=== PATIENT | female | born 2000 | race Caucasian/White ===

== ENCOUNTER 2025-05-22 16:03 | Inpatient (IN) ==
[2025-05-22] MEDS ORDERED: CALCIUM CARBONATE 500 MG CHEWABLE TAB PO PRN (17:55)
[2025-05-22] MEDS ORDERED: LIDOCAINE 1% LOCAL 20 ML VIAL INFIL PRN (17:55)
--- NOTE | 2025-05-22 18:02 | History & Physical Report ---
Date of Service May 22, 2025 Assessment & Plan (1) Obesity during in third trimester: (2) Decreased movements affecting management of mother, antepartum: Plan: 25-year-old at 39 weeks of gestation presenting today with decreased movements all day, reassuring NST and BPP, patient still desires induction of labor at term, Vital signs stable afebrile, GBS negative, Plan to admit, monitor, labs, Cervidil for cervical ripening, patient understands induction process may take a day or 2, All questions were answered. (3) with 39 completed weeks gestation: (4) PCOS (polycystic ovarian syndrome): (5) Ankylosing spondylitis of multiple sites in spine: History of Present Illness Primary Care Provider: NO PCP Patient is a 25-year-old G1, P0 at 39 weeks of gestation who was in the office this morning for routine OB visit and NST. It was not reactive, had only 1 acceleration, moderate variability, no decelerations. She was sent to labor and delivery at [facility]. she had reactive NST and she was sent to ultrasound for BPP it was 8 out of 8. She complained of decreased movements in the office due to the reassuring findings she was sent home. She monitored movements at home and baby has not moved, maybe 2 times in more than 2 hours. She states this is not typical for her baby. He normally moves many times but has not been active today all day. Her NST is reactive here with moderate variability, good accelerations, normal baseline, no decelerations. I did a bedside ultrasound and saw gross body movements, extremity movements, normal tone, LOU is 15.7 cm. She also had membranes stripped this morning and she has been feeling irregular contractions and bloody discharge. She has some induction scheduled for May 26 asking whether she can be induced tonight. We discussed the findings and situation labor and delivery and offered induction tonight and she is appreciative. Allergies Allergy/AdvReac Type Severity Reaction Status Date / Time No Known Allergies Allergy Verified 10/16/24 23:10 Home Medications Medication Instructions Recorded Confirmed Type ondansetron 4 mg disintegrating 4 mg PO Q6H PRN nausea and 10/17/24 02/16/25 Rx tablet vomiting #15 tabs Flintstones Gummies 2 PO DAILY 02/16/25 History folic acid 400 mcg tablet 0.4 mg PO DAILY 02/16/25 02/16/25 History iron 18 mg tablet 18 mg PO DAILY 02/16/25 02/16/25 History Patient History Medical History PVC (premature ventricular contraction) Anxiety PCOS (polycystic ovarian syndrome) Ankylosing spondylitis of multiple sites in spine Surgical History History of removal of ovarian cyst H/O foot surgery History of tonsillectomy and adenoidectomy Family History Other Ankylosing spondylitis Osteogenesis imperfecta Spina bifida Social History Smoking Status: Never smoker Second Hand Exposure: No; Do You Dip or Chew Tobacco: No; Tobacco Cessation Education Requested by Patient: No Hx Alcohol Use: No Hx Substance Use: No Preferred Language: Slovak Communication Ability: Effective Visual Impairment: No Limitations Hearing Ability: Normal Concrete Pointer Required: No Beliefs That Will Affect Care: None marital status: Current Living Situation: Spouse current occupational status: employed 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 Feels Safe at Home: Yes Safety Concerns: Feels Safe At This Time Assistive Devices: None [employer] History No history of STDs, no history of chlamydia, gonorrhea, herpes Review of Systems as per Subjective / HPI Physical Exam Constitutional: WD/WN, vitals as above well developed, well nourished and + obese Gastrointestinal (Abdomen): normal bowel sounds, soft, nontender, no hepatosplenomegaly Genitourinary: OB Exam Abdomen: + vertex ( confirmed with ultrasound) Manual OB Exam: + cervical dilation 1 cm, + cervical effacement 30% and + station high Results & Data Vital Signs (Past 12 Hours) Vital Signs Pulse BP Pulse Ox 05/22/25 17:25 90 98 05/22/25 17:21 99 H 120/76 05/22/25 17:20 98 H 95 05/22/25 17:15 85 97 05/22/25 17:10 104 H 97 05/22/25 17:05 93 H 98 05/22/25 17:00 89 98 05/22/25 16:55 91 H 99 05/22/25 16:50 86 98 05/22/25 16:45 96 H 97 05/22/25 16:40 94 H 99 05/22/25 16:35 105 H 98 05/22/25 16:30 93 H 99 05/22/25 16:25 104 H 98 05/22/25 16:20 101 H 99 05/22/25 16:15 112 H 98 05/22/25 16:12 102 H 134/70 05/22/25 16:10 105 H 100
[2025-05-22 19:42] LABS: Hematocrit (blood only) 36.4 % (37.0-47.0); Hemoglobin 12.7 g/dl (12.0-16.0); Mean Corpuscular Hemoglobin 28.7 pg (25.0-34.0); Mean Corpuscular Volume 82.4 fL (80.0-100.0); Platelet Count 223 K/uL (130-400); RDW Standard Deviation 40.9 fL (36.4-46.3); Red Blood Count 4.42 M/uL (4.20-5.40); White Blood Count 12.80 K/ul (4.8-10.8)
[2025-05-22 20:01] LABS: Alanine Aminotransferase 5.0 U/L (7-52); Albumin Globulin Ratio 1.0 (0.9-2); Alkaline Phosphatase 113.0 U/L (34-104); Anion Gap 9.0 (3-11); Bilirubin,Total 0.6 mg/dl (0.2-1.0); Blood Urea Nitrogen 4.0 mg/dl (6-23); Calcium 9.0 mg/dl (8.6-10.3); Carbon Dioxide 23.0 mmol/L (21-32); Chloride 105.0 mmol/L (98-107); Creatinine Clr Calc Pharmacy 274.9 ml/min; Globulin 3.5 gm/dl (2.5-4.0); Glucose 82.0 mg/dl (70-99(Fasting)); Potassium 3.6 mmol/L (3.5-5.1); Sodium 137.0 mmol/L (136-145); Total Protein 7.0 gm/dl (6.0-8.3)
[2025-05-22] MEDS: DINOPROSTONE 10 MG INSERT PV ONE (21:15)
--- NOTE | 2025-05-22 21:23 | Obstetrical Progress Note ---
Date of Service May 22, 2025 Assessment & Plan Admission and Anticipated Discharge Date Admission Date: May 22, 2025 Subjective patient ate dinner, took shower and ready for Cervidil, Vital signs stable afebrile, heart rate reassuring, Cervidil is placed in posterior fornix, Discussed what to expect, Continue to monitor closely, All questions were answered. Results & Data Vital Signs (Past 12 Hours) Vital Signs Temp Pulse Resp BP Pulse Ox 05/22/25 21:20 110 H 97 05/22/25 21:15 108 H 98 05/22/25 19:20 36.8 C 20 05/22/25 19:20 95 H 124/73 05/22/25 18:24 86 136/61 05/22/25 17:25 90 98 05/22/25 17:21 99 H 120/76 05/22/25 17:20 98 H 95 05/22/25 17:15 85 97 05/22/25 17:10 104 H 97 05/22/25 17:05 93 H 98 05/22/25 17:00 89 98 05/22/25 16:55 91 H 99 05/22/25 16:50 86 98 05/22/25 16:45 96 H 97 05/22/25 16:40 94 H 99 05/22/25 16:35 105 H 98 05/22/25 16:30 93 H 99 05/22/25 16:25 104 H 98 05/22/25 16:20 101 H 99 05/22/25 16:15 112 H 98 05/22/25 16:12 102 H 134/70 05/22/25 16:10 105 H 100
[2025-05-22] MEDS: ACETAMINOPHEN 500 MG TAB PO PRN (21:25)
[2025-05-23] MEDS: BUTORPHANOL TARTRATE 1 MG/ML VIAL IV PRN (00:24)
--- NOTE | 2025-05-23 09:23 | Labor Progress Brief Note ---
Date of Service May 23, 2025 Subjective Reason For Note: Routine Evaluation Assessment & Plan Admission and Anticipated Discharge Date Admission Date: May 22, 2025 Physical Exam Constitutional: WD/WN, vitals as above Genitourinary: no vaginal lesions, no adnexal mass Manual OB Exam: + cervical dilation 1 cm, + cervical effacement 50% and + station high OB Exam Monitor Tracing: + external FHT monitor used, + external uterine monitor used, + category I and + normal FHT variability Cervidil pulled out from vagina. Will continue ripening as cervix is still posterior and firm. vertex is high. Results & Data Vital Signs (Past 12 Hours) Vital Signs Temp Pulse Resp BP Pulse Ox 05/23/25 09:05 36.8 C 93 H 18 129/71 05/23/25 04:04 91 H 97 05/23/25 03:59 87 97 05/23/25 03:54 79 97 05/23/25 03:49 80 96 05/23/25 03:44 74 97 05/23/25 03:39 78 97 05/23/25 03:34 83 97 05/23/25 03:29 89 97 05/23/25 03:24 85 97 05/23/25 03:19 99 H 100 05/23/25 03:16 99 H 119/62 05/23/25 03:15 18 05/23/25 03:15 36.7 C 18 05/23/25 03:14 99 H 98 05/23/25 01:28 82 97 05/23/25 01:23 79 96 05/23/25 01:18 93 H 96 05/23/25 01:13 93 H 97 05/22/25 23:15 36.8 C 83 18 141/80 H 05/22/25 23:14 82 94 05/22/25 23:10 84 97 05/22/25 23:05 74 97 05/22/25 23:00 89 96 05/22/25 22:55 79 96 05/22/25 22:50 88 96 05/22/25 22:45 89 95 05/22/25 22:40 83 96 05/22/25 22:35 94 H 96 05/22/25 22:30 85 97 05/22/25 22:25 86 98 05/22/25 22:20 90 99 05/22/25 22:17 85 94 05/22/25 22:15 90 98 05/22/25 22:10 97 H 96 05/22/25 22:05 97 H 97 05/22/25 22:00 87 97 05/22/25 21:55 82 98 05/22/25 21:50 91 H 98 05/22/25 21:47 99 H 93 05/22/25 21:45 93 H 95 05/22/25 21:40 88 98 05/22/25 21:35 81 98 05/22/25 21:30 89 98 05/22/25 21:25 98 H 98
[2025-05-23] MEDS: miSOPROStoL 50 MCG TAB PO SCH (11:30)
[2025-05-23] MEDS: LACTATED RINGER'S 1,000 ML IV PRN (15:37)
--- NOTE | 2025-05-23 15:41 | Labor Progress Brief Note ---
Date of Service May 23, 2025 Assessment & Plan Admission and Anticipated Discharge Date Admission Date: May 22, 2025 Physical Exam Genitourinary: Manual OB Exam: + cervical dilation 1 cm and 2 cm, + cervical effacement 50% and + station (Villa placed into cervix with 30 ml saline in balloon. Will start Oxytocin) -2 OB Exam Monitor Tracing: + external FHT monitor used, + external uterine monitor used, + category I and + normal FHT variability Results & Data Vital Signs (Past 12 Hours) Vital Signs Temp Pulse Resp BP Pulse Ox 05/23/25 15:24 85 138/76 05/23/25 13:00 36.8 C 05/23/25 12:59 88 97 05/23/25 12:58 88 128/68 05/23/25 11:19 91 H 133/75 05/23/25 09:05 36.8 C 93 H 18 129/71 05/23/25 04:04 91 H 97 05/23/25 03:59 87 97 05/23/25 03:54 79 97 05/23/25 03:49 80 96 05/23/25 03:44 74 97
[2025-05-23] MEDS ORDERED: NALBUPHINE HCL INJ 10 MG/ML AMP IV PRN (16:41)
[2025-05-23] MEDS ORDERED: ONDANSETRON INJ 2 MG/ML 2 ML VIAL IV PRN (16:41)
[2025-05-23] MEDS ORDERED: ROPIVACAINE 0.5% PF 5 MG/ML 20 ML VIAL EPI PRN (16:41)
[2025-05-23] MEDS ORDERED: diphenhydrAMINE 50 MG/ML VIAL IV PRN (16:41)
[2025-05-23] MEDS ORDERED: LIDOCAINE 2% MPF LOCAL 5 ML VIAL EPI PRN (16:41)
[2025-05-23] MEDS ORDERED: NALOXONE HCL 1 MG in SODIUM CHLORIDE 0.9% 1,000 ML IV PRN (16:41)
[2025-05-23] MEDS ORDERED: NALOXONE HCL 0.4 MG/1 ML VIAL/CARP IV PRN (16:41)
[2025-05-23] MEDS ORDERED: PROMETHAZINE 6.25 MG/50.25 ML BAG IV PRN (16:41)
[2025-05-23] MEDS ORDERED: BUPIVACAINE 0.25% PF 30 ML VIAL EPI PRN (16:41)
[2025-05-23] MEDS ORDERED: SODIUM CHLORIDE 0.9% PF INJ 10 ML VIAL EPI PRN (16:41)
[2025-05-23] MEDS: fentANYL 2 MCG/ML BUPIVacaine 0.125%-NSS 100ML BAG ONE (16:42)
--- NOTE | 2025-05-23 16:42 | Anesthesiology Consultation ---
Date of Service May 23, 2025 Assessment & Plan Chart Review Chart Review: Patient NOT seen in Pre Admission Testing and Acceptable Risk for Labor Epidural Consults Requested none ASA ASA2 Proposed Anesthesia Anesthesia Type: Labor Epidural Risk / Benefits Reviewed With: PT / POA / Parent / Guardian, Accepts Plan and Informed Consent Obtained History Height/Weight Height: 5 ft 7 in Weight: 121.563 kg Allergies Allergy/AdvReac Type Severity Reaction Status Date / Time No Known Allergies Allergy Verified 05/22/25 18:30 Medications Home Medications Medication Instructions Recorded Confirmed Last Taken ondansetron 4 mg disintegrating 4 mg PO Q6H PRN nausea and 10/17/24 02/16/25 04/21/25 tablet vomiting #15 tabs prenat.vits,fabby,[id number] 1 tab PO DAILY 05/22/25 05/22/25 05/22/25 09:00 Active Medications Generic Name Dose Route Start Last Admin Trade Name Freq PRN Reason Stop Dose Admin Acetaminophen 1,000 mg 05/22/25 17:55 05/22/25 21:25 Acetaminophen 500 Mg Tab PO 06/21/25 17:54 1,000 mg Q8H PRN Administration Pain Butorphanol Tartrate 1 mg 05/22/25 21:23 05/23/25 12:32 Butorphanol Tartrate 1 Mg/Ml Vial IV 06/21/25 21:22 1 mg Q3H PRN Administration Pain Lactated Ringer's 1,000 mls @ 125 mls/hr 05/22/25 17:55 05/23/25 16:39 Lr IV 05/24/25 17:54 125 mls/hr .Q8H PRN Administration L&D Protocol Protocol Misoprostol 50 mcg 05/23/25 09:21 05/23/25 11:30 Misoprostol 50 Mcg Tab PO 06/22/25 09:20 50 mcg Q4 CATE Administration Past Medical History Medical History PVC (premature ventricular contraction) Anxiety PCOS (polycystic ovarian syndrome) Ankylosing spondylitis of multiple sites in spine Exercise / Class Metabolic Activity II 4-5 Yardwork/Stairs/Walk up hill Past Family History Family History Other Ankylosing spondylitis Osteogenesis imperfecta Spina bifida Past Surgical History Surgical History History of removal of ovarian cyst H/O foot surgery History of tonsillectomy and adenoidectomy Past Anesthesia History No Hx of Anesthesia Complications and No Family Hx of Anesthesia Complications History of PONV No Hx of PONV and No Hx of Motion Sickness Social History Smoking Status: Never smoker Do You Dip or Chew Tobacco: No Hx Alcohol Use: No Hx Substance Use: No Physical Exam Vital Signs Last Vital Signs Temp 36.8 C 05/23/25 13:00 Pulse 90 05/23/25 16:39 Resp 18 05/23/25 09:05 BP 110/62 05/23/25 16:39 Pulse Ox 100 05/23/25 16:37 ENMT Mouth: no dentition abnormality Thyromental Distance: > or= 3.5 Finger Breadths Mallampati Class: II Neck normal visual inspection Respiratory normal respiratory effort Auscultation: lungs clear to auscultation bilaterally Cardiovascular Rate/Rhythm: regular rate and regular rhythm Psychiatric Orientation: alert Testing Laboratory Results 05/22/25 19:25 05/22/25 19:25 Blood Type AB Positive 05/22/25 19:25 Antibody Screen NEGATIVE 05/22/25 19:25
[2025-05-23] MEDS: OXYTOCIN 30 UNITS/NSS 30 UNITS/500 ML BAG IV PRN ×2 (17:30→22:38)
[2025-05-23] MEDS: SODIUM CHLORIDE 0.9% PF INJ 10 ML VIAL ONE (18:00)
[2025-05-23] MEDS: BUPIVACAINE 0.25% PF 30 ML VIAL ONE (18:00)
[2025-05-23] MEDS: LIDOCAINE 2%/EPINEPHRINE 1:200,000 20 ML PF ONE (18:00)
[2025-05-23] MEDS ORDERED: NURSING L&D Epidural Breakthrough Pain Update ONE (20:56)
--- NOTE | 2025-05-23 21:44 | Labor Progress Brief Note ---
Date of Service May 23, 2025 Assessment & Plan Admission and Anticipated Discharge Date Admission Date: May 22, 2025 Physical Exam Genitourinary: Manual OB Exam: + cervical dilation 5 cm, + cervical effacement 100%, + station -1 and + amniotic fluid (AROM with Amni-hook clear fluid) clear OB Exam Monitor Tracing: + external FHT monitor used, + external uterine monitor used, + category I and + normal FHT variability Results & Data Vital Signs (Past 12 Hours) Vital Signs Temp Pulse Resp BP Pulse Ox 05/23/25 21:42 106 H 100 05/23/25 21:37 109 H 100 05/23/25 21:33 121 H 91 05/23/25 21:32 106 H 99 05/23/25 21:27 104 H 99 05/23/25 21:22 100 H 100 05/23/25 21:17 98 H 98 05/23/25 21:12 94 H 100 05/23/25 21:07 87 100 05/23/25 21:02 104 H 100 05/23/25 20:57 106 H 100 05/23/25 20:53 106 H 90 05/23/25 20:52 104 H 100 05/23/25 20:51 99 H 134/66 05/23/25 20:47 94 H 100 05/23/25 20:42 92 H 100 05/23/25 20:41 102 H 92 05/23/25 20:37 99 H 100 05/23/25 20:35 93 H 106/59 L 05/23/25 20:32 100 H 100 05/23/25 20:27 98 H 100 05/23/25 20:22 102 H 100 05/23/25 20:21 116 H 121/68 05/23/25 20:17 104 H 99 05/23/25 20:12 104 H 100 05/23/25 20:07 134 H 100 05/23/25 20:06 98 H 112/58 L 05/23/25 20:02 100 05/23/25 20:02 102 H 05/23/25 20:02 104 H 93 05/23/25 19:57 104 H 98 05/23/25 19:52 99 H 100 05/23/25 19:49 103 H 94 05/23/25 19:47 102 H 100 05/23/25 19:42 87 100 05/23/25 19:37 83 99 05/23/25 19:36 76 123/58 L 05/23/25 19:32 82 100 05/23/25 19:27 77 100 05/23/25 19:22 84 100 05/23/25 19:20 85 133/70 05/23/25 19:17 86 100 05/23/25 19:12 80 99 05/23/25 19:07 76 100 05/23/25 19:05 73 128/62 05/23/25 19:04 16 05/23/25 19:04 36.9 C 16 05/23/25 19:02 91 05/23/25 19:02 81 05/23/25 19:02 82 91 05/23/25 18:57 96 H 99 05/23/25 18:52 76 99 05/23/25 18:50 77 117/59 L 05/23/25 18:47 83 100 05/23/25 18:45 36.8 C 05/23/25 18:42 104 H 99 05/23/25 18:37 99 05/23/25 18:37 97 H 05/23/25 18:37 109 H 112/58 L 05/23/25 18:32 100 H 99 05/23/25 18:27 85 98 05/23/25 18:22 87 98 05/23/25 18:20 90 99/55 L 05/23/25 18:17 88 98 05/23/25 18:12 88 99 05/23/25 18:07 96 H 99 05/23/25 18:06 89 109/56 L 05/23/25 18:02 84 99 05/23/25 17:57 101 H 100 05/23/25 17:52 86 99 05/23/25 17:50 97 H 97/53 L 05/23/25 17:48 91 H 94 05/23/25 17:47 86 95 05/23/25 17:42 76 100 05/23/25 17:37 84 100 05/23/25 17:35 84 91 05/23/25 17:32 73 99 05/23/25 17:31 95 H 105/56 L 05/23/25 17:27 80 116/58 L 99 05/23/25 17:23 82 114/60 05/23/25 17:22 77 99 05/23/25 17:17 74 100 05/23/25 17:16 75 110/57 L 05/23/25 17:14 97 H 92 05/23/25 17:12 100 05/23/25 17:12 89 05/23/25 17:12 86 114/56 L 05/23/25 17:07 81 110/55 L 100 05/23/25 17:03 85 110/57 L 05/23/25 17:02 81 97 05/23/25 16:57 84 100 05/23/25 16:55 92 H 107/53 L 05/23/25 16:53 85 95/45 L 05/23/25 16:52 77 93/53 L 99 05/23/25 16:49 82 91 05/23/25 16:48 82 115/54 L 05/23/25 16:47 80 100 05/23/25 16:43 86 98/52 L 05/23/25 16:42 100 05/23/25 16:42 83 05/23/25 16:42 91 H 104/50 L 05/23/25 16:39 90 110/62 05/23/25 16:38 94 H 118/57 L 05/23/25 16:37 97 H 100 05/23/25 16:36 89 200/145 H 05/23/25 16:35 90 94 05/23/25 16:32 100 05/23/25 16:32 87 05/23/25 16:32 101 H 130/58 L 05/23/25 16:30 91 H 135/64 05/23/25 16:29 97 H 93 05/23/25 16:27 96 H 81 L 05/23/25 16:23 96 H 92 05/23/25 16:22 98 H 136/82 100 05/23/25 15:24 85 138/76 05/23/25 13:00 36.8 C 05/23/25 12:59 88 97 05/23/25 12:58 88 128/68 05/23/25 11:19 91 H 133/75
[2025-05-23] MEDS: fentANYL 2 MCG/ML BUPIVacaine 0.125%-NSS 100ML BAG EPI PRN (21:55)
--- NOTE | 2025-05-23 22:32 | Anesthesia Procedure Note ---
Date of Service May 23, 2025 Anesthesia Epidural Re-Dose Vital Signs Temp Pulse Resp BP Pulse Ox 36.9 C 98 H 16 134/66 95 05/23/25 19:04 05/23/25 22:27 05/23/25 19:04 05/23/25 20:51 05/23/25 22:27 Notes Pain Intensity: 2 Dilatation (cm): 5.0 Effacement (%): 100 After Epidural Re-Dose Mental Status: alert / awake / arousable Pain: improving with treatment Airway Patency, RR, SpO2: stable & adequate BP & HR: stable & adequate Additional Notes: Epidural level checked with ice with very good level bilaterally. She started having increasing pain after breaking water and rapid dilation from 5-10cm. Discussed expectation for rapidly increasing pressure sensation given the course of labor. Dosed with 7cc of 0.25% bupivicane. Mildly improved pain control, but patient now ready to push.
[2025-05-23] MEDS ORDERED: OXYTOCIN 30 UNITS/NSS 30 UNITS/500 ML BAG IV PRN (22:47)
[2025-05-23] MEDS ORDERED: HYDROCORTISONE ACETATE 25 MG SUPP PR PRN (22:47)
--- NOTE | 2025-05-23 22:49 | Delivery Summary ---
Vaginal Delivery Summary Date of Service May 23, 2025 Vaginal Delivery Summary live male SIMI over intact perineum with delayed cord clamping. Apgars 8/9 weight pending. Cord blood obtained followed by spontaneous delivery of intact placenta. No tears. QBL 60 ml. Final sponge and needle count are correct. Mom and baby stable.
[2025-05-24] MEDS: ACETAMINOPHEN 325 MG TAB PO PRN (03:01)
[2025-05-24] MEDS: BENZOCAINE 20% SPRY 85 APPLN/85 GM CAN EXT PRN (03:37)
[2025-05-24] MEDS: IBUPROFEN 600 MG TAB PO PRN (06:32)
[2025-05-24 06:39] LABS: Hematocrit (blood only) 33.3 % (37.0-47.0); Hemoglobin 11.1 g/dl (12.0-16.0); Mean Corpuscular Hemoglobin 27.5 pg (25.0-34.0); Mean Corpuscular Volume 82.4 fL (80.0-100.0); Platelet Count 193 K/uL (130-400); RDW Standard Deviation 41.1 fL (36.4-46.3); Red Blood Count 4.04 M/uL (4.20-5.40); White Blood Count 16.72 K/ul (4.8-10.8)
[2025-05-24] MEDS: DOCUSATE SODIUM 100 MG CAP PO SCH (07:55)
[2025-05-24] MEDS: PRENATAL VITAMIN 1 TAB PO SCH (07:55)
[2025-05-24] MEDS: FERROUS SULFATE 325 MG TAB PO SCH (07:55)
[2025-05-24 08:23] VITALS: RESP 16
--- NOTE | 2025-05-24 08:33 | Anesthesia Procedure Note ---
Date of Service May 24, 2025 Anesthesia Post Epidural Note Vital Signs Vital Signs: Temp Pulse Resp BP Pulse Ox O2 Del Method 36.9 C 75 16 122/72 97 Room Air 05/24/25 08:00 05/24/25 08:00 05/24/25 08:00 05/24/25 08:00 05/24/25 08:00 05/24/25 08:00 Pain Intensity Generalized: Pain Intensity: 6 Notes Mental Status: alert / awake / arousable and participated in evaluation Nausea / Vomiting: adequately controlled Pain: adequately controlled Airway Patency, RR, SpO2: stable & adequate BP & HR: stable & adequate Hydration State: stable & adequate Neuraxial Anesthesia: was administered and sensory block resolved Anesthetic Complications: no major complications apparent and Pt Satisfied with anesthetic care Epidural: Removed without complications and With tip intact
[2025-05-24] MEDS ORDERED: NON-FORMULARY MEDICATION (Prenat.Vits,Cal,Min-Iron-Folic Tablet) PO SCH (09:00)
--- NOTE | 2025-05-24 09:39 | Obstetrical Progress Note ---
Date of Service May 24, 2025 Assessment & Plan Admission and Anticipated Discharge Date Admission Date: May 22, 2025 Subjective abdomen soft and non tender no calf tenderness ambulating well vaginal bleeding scant hgb 11.1 Results & Data Vital Signs (Past 12 Hours) Vital Signs Temp Pulse Pulse Resp BP BP Pulse Ox 05/24/25 08:00 36.9 C 75 16 122/72 97 05/24/25 03:00 36.8 C 99 H 18 118/76 97 05/24/25 00:30 36.9 C 05/23/25 23:36 16 05/23/25 23:36 36.9 C 16 05/23/25 23:34 96 H 130/60 05/23/25 22:42 116 H 97 05/23/25 22:37 106 H 99 05/23/25 22:35 105 H 141/64 H 86 L 05/23/25 22:32 99 H 99 05/23/25 22:29 116 H 94 05/23/25 22:27 98 H 95 05/23/25 22:24 105 H 89 L 05/23/25 22:22 97 H 90 05/23/25 22:18 94 H 91 05/23/25 22:17 95 H 89 L 05/23/25 22:12 102 H 96 05/23/25 22:07 114 H 100 05/23/25 22:02 118 H 100 05/23/25 21:57 126 H 100 05/23/25 21:52 128 H 100 05/23/25 21:47 120 H 99 05/23/25 21:42 106 H 100 O2 Del Method 05/24/25 08:00 Room Air 05/24/25 03:00 Room Air 05/24/25 00:30 05/23/25 23:36 05/23/25 23:36 05/23/25 23:34 05/23/25 22:42 05/23/25 22:37 05/23/25 22:35 05/23/25 22:32 05/23/25 22:29 05/23/25 22:27 05/23/25 22:24 05/23/25 22:22 05/23/25 22:18 05/23/25 22:17 05/23/25 22:12 05/23/25 22:07 05/23/25 22:02 05/23/25 21:57 05/23/25 21:52 05/23/25 21:47 05/23/25 21:42
[2025-05-24] MEDS: BUPIVACAINE 0.25% PF 30 ML VIAL EPI STA (12:53)
[2025-05-24] MEDS: LIDOCAINE 2%/EPINEPHRINE 1:200,000 20 ML PF EPI STA (12:53)
[2025-05-24] MEDS: SODIUM CHLORIDE 0.9% PF INJ 10 ML VIAL EPI STA (12:53)
[2025-05-24] MEDS: DIPHTHER/TETAN/PERTUS Vaccine (Tdap, Adol/Adult) 0.5mL IM ONE (12:54)
[2025-05-25 06:39] LABS: Hematocrit (blood only) 30.2 % (37.0-47.0); Hemoglobin 10.2 g/dl (12.0-16.0)
[2025-05-25 08:08] VITALS: BP 135/74; PULSE 85; TEMP 97.9; O2SAT 98
--- NOTE | 2025-05-25 10:02 | Obstetrical Progress Note ---
Date of Service May 25, 2025 Assessment & Plan (1) Normal course: Post day #2 Vaginal delivery Pt doing well No complaints Stable vitals Stable labs. H/H: 10.2/30.2 Tolerating PO food and med Pt wishes to be discharged home Results & Data Vital Signs (Past 12 Hours) Vital Signs Temp Pulse Resp BP Pulse Ox O2 Del Method 05/25/25 08:00 36.6 C 85 16 135/74 98 Room Air 05/25/25 04:36 36.7 C 84 16 118/73 97 Room Air
== END 2025-05-25 10:52 | disposition home or self-care (01) | DRG 807 ==
LOC: OPB 16:03 → 4S1 16:05 → 4E2 05-24 02:14